=== PATIENT | female | born 1995 | race Caucasian/White ===

== ENCOUNTER 2018-04-19 16:28 | Emergency (ER) | payer BC ==
[~2018-04-19] VITALS: Ht 170.2 cm; Wt 43.5 kg
[~2018-04-19 16:28] MED LIST: CEPH250SUA PO; Hibiclens120 ML EXT; Lice Cream Rin120 ML TP; PERM5TC TOP; TYLENOL COLD AND FLU
[2018-04-19] MEDS ORDERED: Phenergan25 M1 (16:43)
[2018-04-19 17:06] LABS: Source, Urine Clean Catch
[2018-04-19 17:16] LABS: BASOPHILS ABSOLUTE AUTO 0.03 K/mm3 (0.00-0.23); BASOPHILS PERCENT AUTO 0 % (0-2); EOSINOPHILS ABSOLUTE AUTO 0.11 K/mm3 (0.00-0.68); EOSINOPHILS PERCENT AUTO 1 % (0-6); Hematocrit 36.5 % (33.0-51.0); Hemoglobin 12.4 g/dL (11.5-16.0); IMMATURE GRAN ABSOLUTE AUTO 0.04 K/mm3 (0.00-0.10); IMMATURE GRAN PERCENT AUTO 0 % (0-1); LYMPHOCYTES ABSOLUTE AUTO 2.04 K/mm3 (0.84-5.20); LYMPHOCYTES PERCENT AUTO 20 % (21-46); MONOCYTES ABSOLUTE AUTO 0.76 K/mm3 (0.16-1.47); MONOCYTES PERCENT AUTO 8 % (4-13); Mean Corpuscular HGB 29.2 pg (26.0-34.0); Mean Corpuscular Volume 86 fL (80-100); Mean Platelet Volume 10.1 fL (9.1-12.4); NEUTROPHILS ABSOLUTE AUTO 7.04 K/mm3 (1.96-9.15); NEUTROPHILS PERCENT AUTO 70 % (41-73); Platelet Count 270 K/mm3 (150-400); RDW Coefficient Variation 12.8 % (11.7-14.2); RDW Standard Deviation 40.2 fL (35.1-46.3); Red Blood Cell Count 4.24 M/mm3 (3.80-5.20); White Blood Cell Count 10.02 K/mm3 (4.00-11.30)
[2018-04-19 17:16] LABS: Bilirubin, Urine Neg (Neg); Blood, Urine Neg (Neg); Glucose Qualitative, Urine Neg (Neg); Ketones, Urine Neg (Neg); Leukocyte Esterase, Urine 1+ (Neg); Nitrite, Urine Neg (Neg); Protein, Urine Neg (Neg); Urobilinogen, Urine NORM (Normal)
[2018-04-19 17:20] LABS: Appearance, Urine Clear (Clear); Color, Urine Yellow (P-Yellow)
[2018-04-19 17:30] LABS: Bacteria Mod /hpf; Red Blood Cells, Urine 0-2 /hpf (0-2); Squamous Epithelial Cells Few /hpf (Few)
[2018-04-19 17:42] LABS: Alanine Aminotransfer (ALT/SGP 21 U/L (12-78); Albumin, Blood 3.3 g/dL (3.4-5.0); Albumin/Globulin Ratio 0.8 (0.8-1.8); Alk Phos 37 U/L (50-136); Anion Gap 11 mmol/L (6-16); Aspartate Aminotrans (AST/SGOT 21 U/L (12-37); Bilirubin, Total <0.1 mg/dL (0.1-1.0); Blood Urea Nitrogen 10 mg/dL (8-24); Bun/Creatinine Ratio 18.3 (12.0-20.0); CO2, Blood 25 mmol/L (21-32); Calcium, Blood 9.5 mg/dL (8.5-10.1); Chloride, Blood 105 mmol/L (98-108); Creatinine, Blood 0.55 mg/dL (0.40-1.00); Globulin, Blood 4.4 g/dL (2.2-4.0); Glomerular Filtration Rate >60 (60-); Glucose, Blood 81 mg/dL (70-99); Potassium, Blood 3.1 mmol/L (3.5-5.5); Sodium, Blood 141 mmol/L (136-145); Total Protein, Blood 7.7 g/dL (6.4-8.2)
[2018-04-19] MEDS ORDERED: K-TAB ER20 MEQ PO (19:02)
[2018-04-19] MEDS ORDERED: CEPH500 PO (19:02)
== END 2018-04-19 20:20 | disposition home or self-care (01) ==
LOC: ER 16:28
PROVIDERS: Emergency Medicine
DX: O23.42 Unspecified infection of urinary tract in pregnancy, second trimester (principal); O99.282 Endocrine, nutritional and metabolic diseases complicating pregnancy, second trimester; E87.6 Hypokalemia; Z88.2 Allergy status to sulfonamides; Z88.5 Allergy status to narcotic agent; Z79.899 Other long term (current) drug therapy; Z3A.14 14 weeks gestation of pregnancy
CPT/HCPCS: 36415; 80053; 81001; 85025; 87081; 87086; 87430; 96365; 96375; 99284-25; J0696; J2405; J7030

== ENCOUNTER → 2018-09-17 | Outpatient (CLI) | payer BC, OTHER ==
[~2018-09-17] MED LIST changes: +CEPH500 PO; +K-TAB ER20 MEQ PO; +Phenergan25 M1
[2018-09-19 02:18] LABS: CHLAMYDIA TRACHOMATIS, NAA Negative (Negative); NEISSERIA GONORRHOEAE, NAA Negative (Negative)
== END | disposition home or self-care (01) ==
LOC: LAB SHORT 16:02 → LAB 16:02
PROVIDERS: Obstetrics & Gynecology
DX: Z34.03 Encounter for supervision of normal first pregnancy, third trimester (principal); Z3A.36 36 weeks gestation of pregnancy
CPT/HCPCS: 87081; 87491; 87591; 87653; G0123

== ENCOUNTER 2018-10-04 11:50 | Inpatient (IN) | payer BC, OTHER ==
[~2018-10-04] VITALS: Ht 170.2 cm; Wt 0.1 kg
[2018-10-04 14:06] LABS: BASOPHILS ABSOLUTE AUTO 0.02 K/mm3 (0.00-0.23); BASOPHILS PERCENT AUTO 0 % (0-2); EOSINOPHILS ABSOLUTE AUTO 0.07 K/mm3 (0.00-0.68); EOSINOPHILS PERCENT AUTO 1 % (0-6); Hematocrit 35.2 % (33.0-51.0); Hemoglobin 10.9 g/dL (11.5-16.0); IMMATURE GRAN ABSOLUTE AUTO 0.08 K/mm3 (0.00-0.10); IMMATURE GRAN PERCENT AUTO 1 % (0-1); LYMPHOCYTES ABSOLUTE AUTO 1.37 K/mm3 (0.84-5.20); LYMPHOCYTES PERCENT AUTO 14 % (21-46); MONOCYTES ABSOLUTE AUTO 0.62 K/mm3 (0.16-1.47); MONOCYTES PERCENT AUTO 7 % (4-13); Mean Corpuscular HGB 25.6 pg (26.0-34.0); Mean Corpuscular Volume 83 fL (80-100); Mean Platelet Volume 11.2 fL (9.1-12.4); NEUTROPHILS ABSOLUTE AUTO 7.36 K/mm3 (1.96-9.15); NEUTROPHILS PERCENT AUTO 77 % (41-73); Platelet Count 274 K/mm3 (150-400); RDW Coefficient Variation 15.2 % (11.7-14.2); RDW Standard Deviation 45.2 fL (35.1-46.3); Red Blood Cell Count 4.26 M/mm3 (3.80-5.20); White Blood Cell Count 9.52 K/mm3 (4.00-11.30)
--- NOTE | 2018-10-04 16:09 | NUR ---
ADMITTED AFTER CERVICAL CHANGE AND DARK RED/BROWNISH DISCHARGE. GBS POSITIVE.
--- NOTE | 2018-10-05 04:31 | NUR ---
ASSUMED CARE AT 0330.
[2018-10-05 06:03] LABS: BASOPHILS ABSOLUTE AUTO 0.05 K/mm3 (0.00-0.23); BASOPHILS PERCENT AUTO 0 % (0-2); EOSINOPHILS ABSOLUTE AUTO 0.08 K/mm3 (0.00-0.68); EOSINOPHILS PERCENT AUTO 0 % (0-6); Hematocrit 32.7 % (33.0-51.0); IMMATURE GRAN ABSOLUTE AUTO 0.11 K/mm3 (0.00-0.10); IMMATURE GRAN PERCENT AUTO 1 % (0-1); LYMPHOCYTES ABSOLUTE AUTO 1.28 K/mm3 (0.84-5.20); LYMPHOCYTES PERCENT AUTO 7 % (21-46); MONOCYTES ABSOLUTE AUTO 1.41 K/mm3 (0.16-1.47); MONOCYTES PERCENT AUTO 7 % (4-13); Mean Corpuscular HGB 25.4 pg (26.0-34.0); Mean Corpuscular HGB Conc 30.6 g/dL (31.5-36.5); Mean Corpuscular Volume 83 fL (80-100); Mean Platelet Volume 10.8 fL (9.1-12.4); NEUTROPHILS ABSOLUTE AUTO 16.18 K/mm3 (1.96-9.15); NEUTROPHILS PERCENT AUTO 85 % (41-73); Platelet Count 242 K/mm3 (150-400); RDW Coefficient Variation 15.3 % (11.7-14.2); Red Blood Cell Count 3.94 M/mm3 (3.80-5.20); White Blood Cell Count 19.11 K/mm3 (4.00-11.30)
--- NOTE | 2018-10-05 11:44 | NUR ---
FOOD TRAY - PER PT REQUEST NO FOOD TRAYS
--- NOTE | 2018-10-05 23:04 | NUR ---
RECEIVED REPORT FROM MAHIN DUONG. ASSUMED PATIENT CARE AT THIS TIME.
--- NOTE | 2018-10-06 00:28 | NUR ---
PATIENT EXTREMELY INSISTANT ABOUT BEING DISCHARGED SOON BABY'S 24 HR TESTS ARE COMPLETE. BOTH SHASHANK DUONG AND I HAVE EXPLAINED TO HER THAT THE BABY NEEDS TO STAY A BIT LONGER FOR OBSERVATION ESPECIALLY SINCE PATIENT WAS GBS+. PATIENT NOT HAPPY AND CRYING ABOUT THAT. I DID NOTIFY DR GOLDBERG ABOUT PATIENTS DESIRE TO LEAVE AND SHE SAID SHE WILL NOT DISCHARGE BABY TONIGHT BUT IS WILLING TO DISCHARGE BABY IN THE AM AFTER SHE EXAMINES BABY. I INFORMED PATIENT OF THIS AND IT DID MAKE HER FEEL BETTER.
--- NOTE | 2018-10-06 11:45 | NUR ---
Printed d/c instructions and teaching reviewed w/pt. Questions answered to her satisfaction. Denies additional needs or concerns.
--- NOTE | 2018-10-06 12:17 | NUR ---
No acute changes this shift. ID bands matched w/nb. Pt d/c'd home ambulatory to care of [facility].
== END 2018-10-06 12:07 | disposition home or self-care (01) | DRG 807 ==
LOC: OBS 11:50 → BC 11:51 → OBS 13:35 → BC 13:38
PROVIDERS: ADMIT Obstetrics & Gynecology
PROC: 10E0XZZ Delivery of Products of Conception, External Approach (ICD-10-PCS; principal; 2018-10-05)
PROC: 0HQ9XZZ Repair Perineum Skin, External Approach (ICD-10-PCS; 2018-10-05)
PROC: 3E0R3BZ Introduction of Anesthetic Agent into Spinal Canal, Percutaneous Approach (ICD-10-PCS; 2018-10-05)
DX: O70.0 First degree perineal laceration during delivery (principal); Z37.0 Single live birth; Z3A.38 38 weeks gestation of pregnancy; Z23 Encounter for immunization
CPT/HCPCS: 36415; 51702; 59025; 85025; 85460; 96372; 99213; 99214; J0290; J1885; J2405; J2590; J2790; J3010; J7120

== ENCOUNTER 2024-03-05 15:00 | Inpatient (IN) | payer OTHER ==
[2024-03-05] VITALS (16 sets, daily range): BP systolic 114–126; BP diastolic 63–84
[~2024-03-05] VITALS: Ht 170.2 cm; Wt 55.0 kg
[2024-03-05] MEDS ORDERED: FentaNYL Citrate 50 MCG/ML 2 ML Injection IV PRN (19:05)
[2024-03-05] MEDS ORDERED: Oxytocin 10 Unit / ML Vial IM SCH (19:05)
[2024-03-05] MEDS ORDERED: Bupivacaine HCl 2.5 MG/ML 10ML P/F Injection XX SCH (19:05)
[2024-03-05] MEDS ORDERED: Misoprostol 200 MCG Tab PR SCH (19:05)
[2024-03-05] MEDS ORDERED: Lidocaine HCl 1% 30 ML SDV XX SCH (19:05)
[2024-03-05] MEDS ORDERED: Lactated Ringer's 1,000 ML IV PRN (19:05)
[2024-03-05] MEDS ORDERED: Bupivacaine 0.5% HCl 5 MG/ML 30MLVIAL XX SCH (19:05)
[2024-03-05] MEDS ORDERED: OXYTOCIN/RINGER'S LACTATE 500 ML IV SCH (19:05)
[2024-03-05] MEDS ORDERED: Methylergonovine Maleate 0.2MG / ML 1ML Amp IM SCH (19:05)
[2024-03-05] MEDS ORDERED: ePHEDrine Sulfate 50 MG/ML 1ML Injection XX PRN (19:10)
[2024-03-05] MEDS ORDERED: FentaNYL 2mcg/ml-Bup 0.1% Epd 250 ML EPI PRN (19:10)
[2024-03-05] MEDS ORDERED: Lactated Ringer's 1,000 ML IV SCH ×2 (19:10)
[2024-03-05 19:31] LABS: BASOPHILS ABSOLUTE AUTO 0.05 K/mm3 (0.00-0.23); BASOPHILS PERCENT AUTO 0 % (0-2); EOSINOPHILS ABSOLUTE AUTO 0.41 K/mm3 (0.00-0.68); EOSINOPHILS PERCENT AUTO 3 % (0-6); Hemoglobin 12.1 g/dL (11.5-16.0); IMMATURE GRAN ABSOLUTE AUTO 0.21 K/mm3 (0.00-0.10); IMMATURE GRAN PERCENT AUTO 1 % (0-1); LYMPHOCYTES ABSOLUTE AUTO 2.32 K/mm3 (0.84-5.20); LYMPHOCYTES PERCENT AUTO 15 % (21-46); MONOCYTES ABSOLUTE AUTO 1.15 K/mm3 (0.16-1.47); MONOCYTES PERCENT AUTO 7 % (4-13); Mean Corpuscular HGB Conc 32.7 g/dL (31.5-36.5); Mean Corpuscular Volume 86 fL (80-100); Mean Platelet Volume 10.9 fL (9.1-12.4); NEUTROPHILS ABSOLUTE AUTO 11.72 K/mm3 (1.96-9.15); NEUTROPHILS PERCENT AUTO 74 % (41-73); Platelet Count 359 K/mm3 (150-400); RDW Coefficient Variation 14.2 % (11.7-14.2); RDW Standard Deviation 44.4 fL (35.1-46.3); Red Blood Cell Count 4.32 M/mm3 (3.80-5.20); White Blood Cell Count 15.86 K/mm3 (4.00-11.30)
[2024-03-05] MEDS ORDERED: Doxepin HC10 MG/1 ML PO (19:40)
[2024-03-05] MEDS ORDERED: Metoclopramide HCl 5MG / ML 2ML Vial IV PRN (23:10)
[2024-03-05] MEDS ORDERED: ePHEDrine Sulfate 50 MG/ML 1ML Injection IV PRN (23:10)
[2024-03-05] MEDS ORDERED: DiphenhydrAMINE HCl 50 MG/ML 1ML Vial IV PRN (23:10)
[2024-03-05] MEDS ORDERED: Ondansetron HCl 2 MG / ML 2ML Vial IV PRN (23:15)
[2024-03-05] MEDS ORDERED: Naloxone HCl 0.4MG / ML 1ML Vial IV PRN (23:15)
[2024-03-06] VITALS (29 sets, daily range): BP systolic 94–128; BP diastolic 55–81
[2024-03-06] MEDS ORDERED: Calcium Carbonate 500 MG Tab Chew PO PRN (00:45)
[2024-03-06] MEDS ORDERED: Misoprostol 200 MCG Tab PR PRN (05:15)
[2024-03-06] MEDS ORDERED: Lactated Ringer's 1,000 ML IV SCH (05:15)
[2024-03-06] MEDS ORDERED: OXYTOCIN/RINGER'S LACTATE 500 ML IV SCH (05:20)
[2024-03-06] MEDS ORDERED: Ibuprofen 400 MG Tab PO PRN (05:20)
[2024-03-06] MEDS ORDERED: Benzocaine Topical Anesthetic Spray 60GM TOP PRN (05:20)
[2024-03-06] MEDS ORDERED: Acetaminophen 325 MG TABLET PO PRN (05:20)
[2024-03-06] MEDS ORDERED: Methylergonovine Maleate 0.2MG / ML 1ML Amp IM PRN (05:20)
[2024-03-06] MEDS ORDERED: Witch Hazel/Glycerin PADS TOP PRN (05:20)
[2024-03-06] MEDS ORDERED: Ketorolac Tromethamine 30mg Vial IV SCH (06:00)
[2024-03-06] MEDS ORDERED: Prenatal Vit/FE Fumarate/FA 1 Tab PO SCH (09:00)
[2024-03-06] MEDS ORDERED: Rho(D) Immune Globulin 300 MCG / SYR IM ONE (14:15)
[2024-03-06] MEDS ORDERED: Acetaminophen 500 MG Tab PO PRN (18:25)
[2024-03-07 03:44] VITALS: BP 111/70
[2024-03-07 06:53] LABS: BASOPHILS ABSOLUTE AUTO 0.06 K/mm3 (0.00-0.23); BASOPHILS PERCENT AUTO 0 % (0-2); EOSINOPHILS ABSOLUTE AUTO 0.37 K/mm3 (0.00-0.68); EOSINOPHILS PERCENT AUTO 3 % (0-6); Hematocrit 30.2 % (33.0-51.0); Hemoglobin 9.8 g/dL (11.5-16.0); IMMATURE GRAN ABSOLUTE AUTO 0.16 K/mm3 (0.00-0.10); IMMATURE GRAN PERCENT AUTO 1 % (0-1); LYMPHOCYTES ABSOLUTE AUTO 1.82 K/mm3 (0.84-5.20); LYMPHOCYTES PERCENT AUTO 13 % (21-46); MONOCYTES ABSOLUTE AUTO 1.03 K/mm3 (0.16-1.47); MONOCYTES PERCENT AUTO 8 % (4-13); Mean Corpuscular HGB 28.6 pg (26.0-34.0); Mean Corpuscular HGB Conc 32.5 g/dL (31.5-36.5); Mean Corpuscular Volume 88 fL (80-100); Mean Platelet Volume 10.4 fL (9.1-12.4); NEUTROPHILS ABSOLUTE AUTO 10.27 K/mm3 (1.96-9.15); NEUTROPHILS PERCENT AUTO 75 % (41-73); Platelet Count 279 K/mm3 (150-400); RDW Coefficient Variation 14.5 % (11.7-14.2); RDW Standard Deviation 45.9 fL (35.1-46.3); Red Blood Cell Count 3.43 M/mm3 (3.80-5.20); White Blood Cell Count 13.71 K/mm3 (4.00-11.30)
[2024-03-07] MEDS ORDERED: DOCU100 PO (07:22)
[2024-03-07] MEDS ORDERED: IBUP800 PO (07:22)
[2024-03-07] MEDS ORDERED: PRENATAL TABLE1 EAC2 PO (07:22)
[2024-03-07 08:22] VITALS: BP 112/65
--- NOTE | 2024-03-07 10:38 | NUR ---
parents given discharge instructions. will follow up with estefanía within 2-6 weeks. has psychiatrist that she sees and states that estefanía is aware of her underlying anxiety and that she takes medicine for this. will follor up saturday for ppfu here at [facility]bp at 1200. discharged home with family and
== END 2024-03-07 09:50 | disposition home or self-care (01) | DRG 807 ==
LOC: BC 15:00 → OBS 15:00 → BC 18:43
PROVIDERS: ADMIT Obstetrics & Gynecology
PROC: 10E0XZZ Delivery of Products of Conception, External Approach (ICD-10-PCS; principal; 2024-03-06)
DX: O99.344 Other mental disorders complicating childbirth (principal); Z37.0 Single live birth; O99.334 Smoking (tobacco) complicating childbirth; F17.290 Nicotine dependence, other tobacco product, uncomplicated; Z3A.36 36 weeks gestation of pregnancy; Z88.5 Allergy status to narcotic agent; Z88.2 Allergy status to sulfonamides; F32.A Depression, unspecified; F90.9 Attention-deficit hyperactivity disorder, unspecified type; Z98.890 Other specified postprocedural states
CPT/HCPCS: 36415; 51702; 59025; 81003; 85025; 85460; 86850; 86870; 86900; 86901; A9270; J1885; J2405; J2590; J2791; J3010; J7120